=== PATIENT | male | born 1955 | race American Indian/Alaskan Native ===

== ENCOUNTER 2017-08-09 12:04 | Day surgery (SDC) | payer MEDICARE ==
--- NOTE | 2017-08-09 13:57 | Anesthesia Day of Surgery ---
Anesthesia Day of Surgery - Day of Surgery Patient Examined: Yes Patient H&P Reviewed: Yes Patient is NPO: Yes
--- NOTE | 2017-08-09 13:57 | Anesthesia Consultation ---
Anesthesia Consult and Med Hx Date of service: 08/09/17 - Airway Anesthetic Teeth Evaluation: Good ROM Head & Neck: Adequate Mental/Hyoid Distance: Adequate Mallampati Class: Class II Intubation Access Assessment: Probably Good - Pulmonary Exam CTA: Yes - Cardiac Exam Cardiac Exam: RRR - Pre-Operative Health Status ASA Pre-Surgery Classification: ASA3 Proposed Anesthetic Plan: General - Pre-Anesthesia Comment Pre-Anesthesia Comments: Pt has cerebral palsy, wheel chair bound, has a colostomy, is cooperative and verbal - Pulmonary Hx Smoking: No Hx Asthma: No COPD: No Hx Pneumonia: No Hx Sleep Apnea: No (SUKHJINDER PRE SCREEN LOW RISK) - Cardiovascular System Hx Hypertension: Yes Hx Heart Attack/AMI: No - Central Nervous System Hx Seizures: No CVA: No Hx Psychiatric Problems: Yes (Cerebral Palsy, on Risperdal for behavior issues) - Gastrointestinal Hx Gastroesophageal Reflux Disease: Yes (controlled w/ meds) - Endocrine Hx End Stage Renal Disease: No Hx Non-Insulin Dependent Diabetes: No - Hematic Hx Anemia: No - Additional Comments Anesthesia Medical History Comments: NAC
[2017-08-09] MEDS ORDERED: PEPCID IV NR (14:00)
[2017-08-09] MEDS ORDERED: GARAMYCIN/NS 120MG/100ML 120 MG/100 ML BAG IV SCH (14:00)
[2017-08-09] MEDS ORDERED: ANCEF/STERILE WATER 2 GM/20 ML IV NR (14:00)
[2017-08-09] MEDS ORDERED: GARAMYCIN IV SCH (14:00)
[2017-08-09] MEDS ORDERED: LACTATED RINGERS 1,000 ML IV SCH (14:00)
[2017-08-09] MEDS ORDERED: NEO SYNEPHRINE/NS Syringe(OR USE) IV ONE (14:00)
[2017-08-09] MEDS ORDERED: XYLOCAINE MPF 2% ONE (14:20)
[2017-08-09] MEDS ORDERED: SUBLIMAZE ONE (14:20)
[2017-08-09] MEDS ORDERED: DIPRIVAN 10 MG/ML IV ONE (14:20)
[2017-08-09] MEDS ORDERED: GARAMYCIN/NS 80 MG/100 ML 100 ML IV ONE ×2 (14:35→14:40)
[2017-08-09] MEDS ORDERED: WATER FOR IRRIG STERILE IR ONE ×2 (15:40)
[2017-08-09] MEDS ORDERED: ZOFRAN ONE (16:10)
--- NOTE | 2017-08-09 16:13 | Short Stay Summary ---
Short Stay Documentation Date of service: 08/09/17 - History H&P: obtained from office - Allergies and Medications Current Medications: Allergies No Known Allergies Allergy (Verified 08/04/17 14:54) Home Medications Medication Instructions Recorded Confirmed Last Taken Type Fluticasone Furoate [Veramyst 50 mg NS DAILY PRN 08/18/13 08/09/17 08/09/17 10: 00 History NASAL 27.5 MCG/SPRAY] Lactulose [Cephulac] 20 gm PO TID 08/18/13 08/09/17 08/09/17 10:00 History Omeprazole [Prilosec] 40 mg PO QDAY 08/18/13 08/09/17 08/09/17 10:00 History risperiDONE [RisperDAL] 2 mg PO BID 08/18/13 08/09/17 08/09/17 10:00 History Cholecalciferol (Vitamin D3) 1 tab PO DAILY 06/30/15 08/09/17 08/09/17 10:00 History [Vitamin D-3] Active Medications Cefazolin Sodium (Ancef/Sterile Water 2 Gm/20 Ml) 2 gm IV PREOP NR Stop: 08/09/17 23:59 Famotidine (Pepcid) 20 mg IV PREOP NR Stop: 08/09/17 23:00 Last Admin: 08/09/17 14:08 Dose: 20 mg Lactated Ringer's (Lactated Ringers) 1,000 mls @ 100 mls/hr IV DIRECT NAE Last Admin: 08/09/17 14:07 Dose: 100 mls/hr - Brief post op/procedure progress note Date of procedure: 08/09/17 Pre-op diagnosis: elevated psa (4.5 & 5.4), bph Post-op diagnosis: same Procedure: cysto, cystogram, pus 30cc, 7cores-----pt contracted Anesthesia: GETA Surgeon: NIEVES ROLDAN Estimated blood loss: minimal Pathology: list (prostate cores) Specimen disposition: to lab Condition: stable - Hospital course Hospital course: jake nolasco, post op info on chart - Disposition Condition at discharge: Stable Disposition: DC-01 TO HOME OR SELFCARE Short Stay Discharge Plan Follow up with: DIANA KHAN MD [Primary Care Provider] - 7 Days
[2017-08-09] MEDS ORDERED: NACL 0.9% 500 ML 500 ML ONE (16:32)
--- NOTE | 2017-08-09 16:42 | Post Anesthesia Evaluation ---
- Post Anesthesia Evaluation Patient Participated: Yes Airway Patent: Yes Stable Respiratory Function: Yes Temp > 96.8F: Yes Pain Manageable: Yes Adequeate Hydration: Yes Anesthesia Complications: No
[2017-08-09 18:03] VITALS: BP 158/80
--- NOTE | 2017-08-09 20:57 | Operative Report ---
PREOPERATIVE DIAGNOSIS: Elevated PSA (5.4 and 4.5 on repeat). POSTOPERATIVE DIAGNOSES: Elevated PSA (5.4 and 4.5 on repeat). Benign prostatic hypertrophy. PROCEDURE: Flexible cystoscopy, cystogram, transrectal ultrasound, 30 gram gland, biopsy of prostate. SURGEON: Noé Mckeon MD ANESTHESIA: General. ESTIMATED BLOOD LOSS: Minimal. FLUIDS: Crystalloid. COMPLICATIONS: No complications. INDICATIONS: This 62-year-old gentleman, wheelchair bound with contractures presents to the office with history of elevated PSA. It was 5.4, repeated it; however, it went down to 4.5. He presents now for surgical intervention. His brother has a history of prostate cancer. DESCRIPTION OF PROCEDURE: The patient was taken to the operative suite, placed in a supine position. After adequate general anesthesia, placed in a modified dorsal lithotomy position due to his contractures. We had to have staff to hold 1 leg in position due to his contractures and could not be totally put in stirrups. Flexible cystoscopy was performed. No urethral abnormalities. Prostate was minimally obstructing his bladder. No tumors or stones were noted. Cystogram, actually no reflux, normal bladder contour. Sy catheter was left indwelling. Next, using transrectal ultrasound, measurements in the sagittal and transverse plane revealed 30 gram gland. I was able to do 6 core biopsy on the right side of the prostate; however, due to his contractures, I was unable to get good visualization of the left side and only 1 core at the left base could be taken. His bladder was drained, left the Sy catheter in, will get out in the office. He was extubated and taken to recovery room. He will go home on Cipro and [place]. JOB# [id number] [employer] [facility] [facility]/NTS
--- NOTE | 2017-08-10 07:35 | Ultrasound Report ---
ULTRASOUND GUIDE INTRAOPERATIVE History: Elevated PSA, ultrasound guidance for prostate biopsy. Findings: Endorectal ultrasound guidance was provided by radiology during prostate biopsy by urology. Prostate volume measures 37.1 cc. Please correlate with the procedural report by Dr. Mckeon. Impression: Successful prostate biopsy under ultrasound guidance.
--- NOTE | 2017-08-10 08:43 | Fluoroscopy Report ---
CYSTOGRAM, ONE VIEW History: Elevated PSA, benign prostatic hypertrophy. Findings: Fluoroscopy was provided by radiology during cystogram by urology. Four Fluoroscopic images were saved. 40 cc of [id number] was injected into the bladder. There is no obvious bladder filling defect or extravasation. Please correlate with the procedural report by Dr. Mckeon. Impression: Unremarkable bladder.
== END 2017-08-09 17:20 | disposition home or self-care (01) ==
LOC: OR 12:04
PROVIDERS: ATTEND Urology
DX: R97.20 Elevated prostate specific antigen [PSA] (principal); N40.0 Benign prostatic hyperplasia without lower urinary tract symptoms; I10 Essential (primary) hypertension; K21.9 Gastro-esophageal reflux disease without esophagitis; G80.9 Cerebral palsy, unspecified; K59.09 Other constipation; F32.9 Major depressive disorder, single episode, unspecified
CPT/HCPCS: 55700; 74430; 76998; 88305; A4217; C1758; J0690; J1580; J2370; J2405; J2704; J3010; J7040; J7120; Q9967; 88342